=== PATIENT | male | born 1970 | race Caucasian/White ===

== ENCOUNTER 2019-04-22 14:18 | Emergency (ER) | payer BC ==
[2019-04-22 17:46] VITALS: BP 146/98
--- NOTE | 2019-04-22 18:09 | UC ---
FLU HPI - HPI Summary HPI Summary: 48-year-old male presenting with cough, headache, chills, and mild sore throat since yesterday. Denies shortness of breath and wheezing. Cough is nonproductive. Denies nausea or vomiting. Decreased appetite. Subjective fever today. Taking cough syrup with minimal relief. - History of Current Complaint Chief Complaint: UCGeneralIllness Stated Complaint: COUGH,MACDONALD,CHILLS Hx Obtained From: Patient Pain Intensity: 0 - Allergy/Home Medications Allergies/Adverse Reactions: Allergies Allergy/AdvReac Type Severity Reaction Status Date / Time No Known Allergies Allergy Verified 04/22/19 15:11 Home Medications: Home Medications Oseltamivir CAP* [Tamiflu CAP*] 75 mg PO BID #10 cap 04/22/19 [Rx] PMH/Surg Hx/FS Hx/Imm Hx - Surgical History Surgical History: None - Family History Known Family History: Positive: Hypertension - Social History Alcohol Use: Occasionally Substance Use Type: None Smoking Status (MU): Former Smoker When Did the Patient Quit Smoking/Using Tobacco: 2009 Household Exposure Type: Cigarettes Review of Systems All Other Systems Reviewed And Are Negative: Yes Constitutional: Positive: Fever, Chills, Fatigue ENT: Positive: Sore Throat Respiratory: Positive: Cough. Negative: Shortness Of Breath Cardiovascular: Positive: Negative Gastrointestinal: Positive: Negative Musculoskeletal: Negative: Myalgia Neurological/Mental Status: Positive: Headache Physical Exam - Summary Physical Exam Summary: Vital Signs Reviewed: Yes A+Ox3, no distress, well-appearing Eyes: Conjunctiva inflamed b/l ENT: Hearing grossly normal, TM x 2 clear, moist, uvula midline, no exudate, + pharyngeal erythema Neck: Positive: Supple Respiratory: Positive: No respiratory distress, No accessory muscle use + CTA throughout no w/r Cardiovascular: RRR nl s1, s2 no m/r Musculoskeletal Exam: LUND x 4 without difficulty Neurological: Positive: Alert Psychological: Positive: age appropriate behavior Skin: Positive: no rash, no ecchymosis Vital Signs: Initial Vital Signs Temp 99.8 F 04/22/19 15:07 Pulse 103 04/22/19 15:07 Resp 16 04/22/19 15:07 BP 151/100 04/22/19 15:07 Pulse Ox 98 04/22/19 15:07 Lab Results 04/22/19 Range/Units 18:24 Influenza A (Rapid) Positive H (Negative) Flu Course/Dx - Course Course Of Treatment: Rapid flu A positive. I discussed influenza and tamiflu with patient. Patient prefers to take tamiflu at this time. I provided patient with Tamiflu prescriptions and instructed to continue with symptomatic treatment. Instructed to follow up with physician referral if symptoms persist. I also discussed elvated blood pressure today and instructed to follow up within next 2 weeks for reevaluation by pcp referral. Patient voiced understanding and agreed with treatment plan. - Differential Dx/Diagnosis Provider Diagnosis: Influenza A, Elevated blood pressure reading without diagnosis of hypertension Discharge ED - Sign-Out/Discharge Documenting (check all that apply): Patient Departure All imaging exams completed and their final reports reviewed: No Studies - Discharge Plan Condition: Stable Disposition: HOME Prescriptions: Oseltamivir CAP* [Tamiflu CAP*] 75 mg PO BID #10 cap Patient Education Materials: Influenza (ED), Hypertension (ED) Forms: *Work Release Referrals: [facility] [place] PHYSICIAN REFERRAL [Outside] - 2 Weeks Additional Instructions: As discussed, you tested positive for influenza today. Take tamiflu as prescribed. You may continue with motrin or tylenol for fever and pain relief. Get plenty of rest and increase your fluid intake. Follow up with the physician referral listed below if symptoms do not improve within 5-7 days. It is also recommended that you follow up with the referral to have your elevated blood pressure reevaluated. - Billing Disposition and Condition Condition: STABLE Disposition: Home
[2019-04-22 18:29] LABS: Influenza A Molecular POSITIVE (Negative)
== END 2019-04-22 18:45 | disposition home or self-care (01) ==
LOC: UCCORT 14:18
DX: J10.1 Influenza due to other identified influenza virus with other respiratory manifestations (principal); R03.0 Elevated blood-pressure reading, without diagnosis of hypertension; Z87.891 Personal history of nicotine dependence
CPT/HCPCS: 99202; G0463